=== PATIENT | male | born 1990 | race Caucasian/White ===

== ENCOUNTER 2021-01-23 13:22 | Emergency (ER) | payer OTHER ==
[~2021-01-23] VITALS: Ht 167.6 cm; Wt 83.9 kg
[2021-01-23 13:35] VITALS: BP 150/112
--- NOTE | 2021-01-23 14:20 | NUR ---
30 Y/O MALE C/O SOB AND NUMBNESS OF FACE XTODAY. PT STATES BLURRY VISION AND NUMBNESS TO BILAT FEET. LUNG SOUNDS CLEAR. PT REPORTS DRINKING 10 SHOTS OF WHISKEY LAST NIGHT. DENIES ANY PAIN. TOOK XANAX THIS AM. PMH: HTN MEDS: LISINOPRIL, XANAX NKA
--- NOTE | 2021-01-23 14:20 | NUR ---
PT AMBULATED TO BED 10
--- NOTE | 2021-01-23 14:22 | NUR ---
DR ARORA AT BEDSIDE EXAMINING PT
--- NOTE | 2021-01-23 14:23 | NUR ---
Dr. Villagomez is evaluating the patient at bedside.
[2021-01-23] MEDS ORDERED: HYDR-637 PO (14:43)
[2021-01-23] MEDS ORDERED: LORazepam 1 MG TAB PO ONE (14:45)
[2021-01-23 15:00] VITALS: BP 150/112
--- NOTE | 2021-01-23 15:00 | NUR ---
Patient discharged with v/s stable. Written and verbal after care instructions given and explained. Patient alert, oriented and verbalized understanding of instructions. Ambulatory with steady gait. All questions addressed prior to discharge. ID band removed. Patient advised to follow up with PMD. Rx of HYDROXYZINE given. Patient educated on indication of medication including possible reaction and side effects. Opportunity to ask questions provided and answered.
== END 2021-01-23 15:00 | disposition home or self-care (01) ==
LOC: MED 13:22
DX: F41.9 Anxiety disorder, unspecified (principal); I10 Essential (primary) hypertension; F12.90 Cannabis use, unspecified, uncomplicated; Z79.899 Other long term (current) drug therapy
CPT/HCPCS: 99283